=== PATIENT | male | born 1955 | race Two or more races ===

== ENCOUNTER 2020-08-19 14:30 | Outpatient (CLI) | payer MEDICARE, MEDICAID | END 2020-08-19 23:59 | disposition home or self-care (01) | LOC: WOU 14:30 | PROVIDERS: ATTEND Podiatrist Foot & Ankle Surgery | DX: L84 Corns and callosities (principal); B35.1 Tinea unguium; E11.65 Type 2 diabetes mellitus with hyperglycemia; Z79.4 Long term (current) use of insulin; Z79.899 Other long term (current) drug therapy | CPT/HCPCS: G0463 ==

== ENCOUNTER 2020-11-19 12:20 | Emergency (ER) | payer MEDICARE, OTHER ==
[~2020-11-19] VITALS: Ht 172.7 cm; Wt 101.2 kg
--- NOTE | 2020-11-19 12:49 | NUR ---
PAGED DR. LOPEZ.
[2020-11-19] MEDS ORDERED: CLONIDINE HCL 0.1 MG TABLET ONE (12:58)
[2020-11-19] MEDS: CLONIDINE HCL 0.1 MG TABLET PO ONE (13:02)
[2020-11-19] MEDS ORDERED: AMLO5TAB4 PO (13:27)
--- NOTE | 2020-11-19 13:32 | NUR ---
Patient a/ox4, breathing even and unlabored, no complaints. Patient discharged to home in stable condition. Written and verbal after care instructions given. Patient verbalizes understanding of instruction.
[2020-11-19 13:33] VITALS: BP 180/86
== END 2020-11-19 13:35 | disposition home or self-care (01) ==
LOC: ER 12:24
DX: I10 Essential (primary) hypertension (principal); E11.9 Type 2 diabetes mellitus without complications